=== PATIENT | female | born 1990 | race Caucasian/White ===

== ENCOUNTER 2016-09-24 17:00 | Emergency (ER) | payer SELFPAY ==
[2016-09-24 17:17] VITALS: BP 142/92
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
[2016-09-24] MEDS ORDERED: Cyclobenzaprine TAB* 10 MG PO ONE (17:56)
--- NOTE | 2016-09-24 18:28 | RAD ---
Indication: Left shoulder pain. 3 views of left shoulder demonstrates no fracture. No other bone or joint abnormality is identified. IMPRESSION: No fracture of the left shoulder is noted.
== END 2016-09-24 18:52 | disposition home or self-care (01) ==
LOC: UCEAST 17:00
DX: M25.512 Pain in left shoulder (principal); R20.0 Anesthesia of skin; F17.210 Nicotine dependence, cigarettes, uncomplicated
CPT/HCPCS: 99212; A9270-GY; G0463

== ENCOUNTER 2019-05-12 11:15 | Emergency (ER) | payer SELFPAY ==
--- NOTE | 2019-05-12 11:36 | UC ---
Respiratory Complaint HPI - HPI Summary HPI Summary: 29 yo female presents with URI symptoms. She tells me that for the past 3 days she has had body aches, fatigue, cough, and last night began to have a sore throat. She has not been taking anything OTC for her symptoms. States co- workers have been sick with similar symptoms. She is still smoking. Denies fever , chills, SOB, abdominal pain,n/v - History of Current Complaint Stated Complaint: SORE THROAT CHEST CONGESTION Time Seen by Provider: 05/12/19 11:36 Hx Obtained From: Patient Hx Last Menstrual Period: 09/12/16 Onset/Duration: Sudden Onset Severity Initially: Moderate Severity Currently: Moderate Pain Intensity: 7 Pain Scale Used: 0-10 Numeric - Allergies/Home Medications Allergies/Adverse Reactions: Allergies Allergy/AdvReac Type Severity Reaction Status Date / Time No Known Allergies Allergy Verified 05/12/19 11:37 PMH/Surg Hx/FS Hx/Imm Hx - Additional Past Medical History Additional PMH: None - Surgical History Surgical History: Yes Surgery Procedure, Year, and Place: 02/2016 - Family History Known Family History: Positive: Cardiac Disease, Hypertension, Diabetes - Social History Occupation: Employed Full-time Lives: With Family Alcohol Use: Rare Alcohol Amount: last night Substance Use Type: None Substance Use Comment - Amount & Last Used: once a week Smoking Status (MU): Light Every Day Tobacco Smoker Type: Cigarettes Amount Used/How Often: 6 cigarettes daily Length of Time of Smoking/Using Tobacco: 13 YRS Have You Smoked in the Last Year: Yes Household Exposure Type: Cigarettes - Immunization History Most Recent Influenza Vaccination: none Review of Systems All Other Systems Reviewed And Are Negative: No Constitutional: Positive: Fatigue, Other - Body aches Skin: Positive: Negative Eyes: Positive: Negative ENT: Positive: Sore Throat Respiratory: Positive: Cough Cardiovascular: Positive: Negative Gastrointestinal: Positive: Negative Neurological: Positive: Negative Psychological: Positive: Negative Physical Exam - Summary Physical Exam Summary: GENERAL: NAD. WDWN. No pain distress. SKIN: No rashes, sores, lesions, or open wounds. HEENT: Head: AT/NC Eyes: EOM intact. Conjunctiva clear without inflammation or discharge. Ears: Hearing grossly normal. TMs intact, no bulging, erythema, or edema. Nose: Nasal mucosa pink and moist. NTTP maxillary and frontal sinus. Throat: Posterior oropharynx without exudates, erythema, or tonsillar enlargement. Uvula midline. NECK: Supple. Nontender. No lymphadenopathy. CHEST: CTAB. No accessory muscle use. Breathing comfortably and in no distress. CV: RRR. Pulses intact. Cap refill <2seconds NEURO: Alert. PSYCH: Age appropriate behavior. Triage Information Reviewed: Yes Vital Signs: Vital Signs: Temp Pulse Resp BP Pulse Ox 96.4 F 81 18 143/71 97 05/12/19 11:37 05/12/19 11:37 05/12/19 11:37 05/12/19 11:37 05/12/19 11:37 Vital Signs Reviewed: Yes Respiratory Course/Dx - Course Course Of Treatment: Discussed viral vs bacterial causes of URI with pt and she prefers to be on anbx at this time. - Differential Dx/Diagnosis Provider Diagnosis: URI (upper respiratory infection) Discharge ED - Sign-Out/Discharge Documenting (check all that apply): Patient Departure All imaging exams completed and their final reports reviewed: No Studies - Discharge Plan Condition: Stable Disposition: HOME Prescriptions: Amoxicillin PO (*) [Amoxicillin 875 MG (*)] 875 mg PO BID #14 tab Patient Education Materials: Upper Respiratory Infection (ED) Referrals: No Primary Care Phys,NOPCP [Primary Care Provider] - Additional Instructions: If you develop a fever, shortness of breath, chest pain, new or worsening symptoms - please call your PCP or go to the ED immediately. Your blood pressure was high at todays visit. Please see your primary provider within 4 weeks for recheck and re-evaluation. - Billing Disposition and Condition Condition: STABLE Disposition: Home
[2019-05-12 11:44] VITALS: BP 143/71
== END 2019-05-12 12:25 | disposition home or self-care (01) ==
LOC: UCEAST 11:15
DX: J06.9 Acute upper respiratory infection, unspecified (principal); F17.210 Nicotine dependence, cigarettes, uncomplicated; R53.83 Other fatigue
CPT/HCPCS: 99212; G0463

== ENCOUNTER 2019-09-28 17:17 | Emergency (ER) | payer SELFPAY ==
[2019-09-28] MEDS ORDERED: NS 0.9% 1000 ML** 1,000 ML IV ONE (17:52)
[2019-09-28] MEDS ORDERED: Ketorolac INJ* 30 MG/ML 1 ML VIAL IV PUSH ONE (17:52)
[2019-09-28 17:53] LABS: ABS Eosinophils 0.1 10^3/ul (0-0.6); ABS Lymphocytes 3.6 10^3/ul (1.0-4.8); ABS Monocytes 0.8 10^3/ul (0-0.8); ABS Neutrophils 6.1 10^3/ul (1.5-7.7); Eosinophil % 0.9 %; Hematocrit 47 % (35-47); Hemoglobin 16.5 g/dL (12.0-16.0); Lymphocyte % 33.5 %; Mean Corpuscular HGB Conc 35 g/dL (31-36); Mean Corpuscular Hemoglobin 30 pg (27-31); Mean Corpuscular Volume 85 fL (80-97); Mean Platelet Volume 8.2 fL (7.4-10.4); Nucleated Red Blood Cells % 0.1; Platelet Count 292 10^3/uL (150-450); Red Blood Count 5.52 10^6 /uL (3.70-4.87); Red Cell Distribution Width 13 % (10-15); White Blood Count 10.6 10^3/uL (3.5-10.8)
--- NOTE | 2019-09-28 18:01 | ED ---
GI/ HPI - HPI Summary HPI Summary: 29 year old female presents with abd pain since this morning. She admits to nausea vomiting. She also has diarrhea. She states she has issues with her gallbladder and it feels the same. She has not seen a surgeon. no previous abd surgeries. She has a chronic cough is unchanged. Denies any chest pain or shortness breath. No fevers. Has not had appetite. She was nauseous and was given morphine and Zofran by EMS and now feels a little bit better. She denies any urinary symptoms. - History of Current Complaint Chief Complaint: EDAbdPain Time Seen by Provider: 09/28/19 17:34 Stated Complaint: ABD PAIN PER EMS Hx Last Menstrual Period: 09/12/16 Pain Intensity: 7 - Allergy/Home Medications Allergies/Adverse Reactions: Allergies Allergy/AdvReac Type Severity Reaction Status Date / Time No Known Allergies Allergy Verified 09/28/19 17:24 Home Medications: Home Medications Omeprazole 20 mg PO DAILY #13 capsule. 09/28/19 [Rx] Ondansetron ODT TAB* [Zofran 4 MG Odt TAB*] 4 mg PO Q6H PRN #16 tab.odt [Rx] PMH/Surg Hx/FS Hx/Imm Hx Endocrine/Hematology History: Denies: Hx Diabetes, Hx Thyroid Disease Cardiovascular History: Denies: Hx Hypertension, Hx Pacemaker/ICD Respiratory History: Denies: Hx Asthma, Hx Chronic Obstructive Pulmonary Disease (COPD) GI History: Denies: Hx Ulcer Sensory History: Denies: Hx Hearing Aid Psychiatric History: Denies: Hx Panic Disorder - Surgical History Surgery Procedure, Year, and Place: 02/2016 Infectious Disease History: No Infectious Disease History: Denies: Hx Clostridium Difficile, Hx Hepatitis, Hx Human Immunodeficiency Virus (HIV), Hx of Known/Suspected MRSA, Hx Shingles, Hx Tuberculosis, Hx Known/ Suspected VRE, Hx Known/Suspected VRSA, History Other Infectious Disease, Traveled Outside the [place] in Last 30 Days - Family History Known Family History: Positive: Cardiac Disease, Hypertension, Diabetes - Social History Alcohol Use: Rare Alcohol Amount: last night Substance Use Type: Reports: Marijuana Substance Use Comment - Amount & Last Used: once a week Smoking Status (MU): Light Every Day Tobacco Smoker Type: Cigarettes Amount Used/How Often: 6 cigarettes daily Length of Time of Smoking/Using Tobacco: 13 YRS Have You Smoked in the Last Year: Yes Review of Systems Negative: Fever Negative: Chest Pain Negative: Shortness Of Breath Positive: Abdominal Pain, Vomiting, Diarrhea, Nausea All Other Systems Reviewed And Are Negative: Yes Physical Exam Triage Information Reviewed: Yes Vital Signs On Initial Exam: Initial Vitals Temp Pulse Resp BP Pulse Ox 98.3 F 84 18 154/84 97 09/28/19 17:21 09/28/19 17:21 09/28/19 17:21 09/28/19 17:21 09/28/19 17:21 Vital Signs Reviewed: Yes Appearance: Positive: Well-Appearing Skin: Positive: Warm, Dry Head/Face: Positive: Normal Head/Face Inspection Eyes: Positive: Normal, Conjunctiva Clear ENT: Positive: Pharynx normal Respiratory/Lung Sounds: Positive: Clear to Auscultation, Breath Sounds Present Cardiovascular: Positive: Normal, RRR Abdomen Description: Positive: Soft, Other: - tenderness in RUQ Bowel Sounds: Positive: Present Musculoskeletal: Positive: Normal Neurological: Positive: Normal Psychiatric: Positive: Normal Procedures - Sedation Patient Received Moderate/Deep Sedation with Procedure: No Diagnostics - Vital Signs Vital Signs Temp Pulse Resp BP Pulse Ox 09/28/19 17:21 98.3 F 84 18 154/84 97 - Laboratory Result Diagrams: 09/28/19 17:45 09/28/19 17:45 Lab Statement: Any lab studies that have been ordered have been reviewed, and results considered in the medical decision making process. - Ultrasound No standard instances Ultrasound Interpretation Completed By: Radiologist Summary of Ultrasound Findings: IMPRESSION: No acute sonographic pathology. Re-Evaluation - Re-Evaluation First Eval Change: Improved Comment: feeling better GIGU Course/Dx - Course Course Of Treatment: 29 year old female presents with abd pain since this morning. She admits to nausea vomiting. She also has diarrhea. She states she has issues with her gallbladder and it feels the same. She has not seen a surgeon. no previous abd surgeries. She has a chronic cough is unchanged. Denies any chest pain or shortness breath. No fevers. Has not had appetite. She was nauseous and was given morphine and Zofran by EMS and now feels a little bit better. She denies any urinary symptoms. On exam has tenderness in the right upper quadrant. No rebound tenderness. wbc normal. lfts normal. crp normal. gallbladder u/s shows no acute findings. will treat as potential gastritis with protonix and gi cocktail. will place on course of omeprazole. patient understand and agrees with plan. - Diagnoses Differential Diagnoses - Female: Gall Bladder Disease, Gastritis, Gastroenteritis (Viral) Provider Diagnoses: Abdominal pain, Nausea vomiting and diarrhea Discharge ED - Sign-Out/Discharge Documenting (check all that apply): Patient Departure - Discharge Plan Condition: Good Disposition: HOME Prescriptions: Omeprazole 20 mg PO DAILY #13 capsule. Ondansetron ODT TAB* [Zofran 4 MG Odt TAB*] 4 mg PO Q6H PRN #16 tab.odt PRN Reason: Nausea Patient Education Materials: Abdominal Pain (ED) Referrals: [facility] [Outside] Noemi Moreland MD [Medical Doctor] - Additional Instructions: Take omeprazole once a day take zofran every 6 hours for nausea Take tyenlol for pain every 6 hours Establish care with primary Return to ED if develop any new or worsening symptoms - Billing Disposition and Condition Condition: GOOD Disposition: Home - Attestation Statements Provider Attestation: I was available for consultation for this patient. I did not evaluate the patient or participate in any medical decision making or disposition decisions unless I am specifically named in the chart as having consulted on the patient. If I have consulted on the patient, please see my own ED note on the patient encounter. Orquidea Mensah MD
[2019-09-28 18:11] LABS: ALT 26 U/L (7-52); AST 19 U/L (13-39); Albumin 4.3 g/dL (3.2-5.2); Albumin/Globulin Ratio 1.4 (1-3); Alkaline Phosphatase 42 U/L (34-104); Anion Gap 9 mmol/L (2-11); BUN/Creatinine Ratio 13.2 (8-20); Blood Urea Nitrogen 9 mg/dL (6-24); C Reactive Protein 7.34 mg/L (<8.01); CO2 Carbon Dioxide 24 mmol/L (22-32); Calcium 9.5 mg/dL (8.6-10.3); Chloride 105 mmol/L (101-111); EGFR African American 122.9 (>60); EGFR Non-African American 101.6 (>60); Glucose 102 mg/dL (70-100); Potassium 3.8 mmol/L (3.5-5.0); Sodium 138 mmol/L (135-145); Total Protein 7.3 g/dL (6.4-8.9)
[2019-09-28 18:17] LABS: HCG Pregnancy < 0.60 mIU/mL
[2019-09-28] MEDS ORDERED: Pantoprazole IV* 40 MG IV ONE (19:15)
[2019-09-28] MEDS ORDERED: Lidocaine 2% VISCOUS* 15 ML UDC PO ONE (19:28)
[2019-09-28] MEDS ORDERED: Al Hydrox/Mg Hydrox/Simet LIQ* 30 ML UDC PO ONE (19:28)
[2019-09-28] MEDS ORDERED: O ndansetron ODT 4MG 5TAB PRPK 4 MG PAK PO ONE (19:49)
[2019-09-28 20:20] VITALS: BP 139/71
[2019-09-28 20:39] LABS: Urine Appearance Cloudy; Urine Bilirubin Negative (Negative); Urine Blood 1+ (Negative); Urine Color Amber; Urine Glucose Negative (Negative); Urine Ketones Negative (Negative); Urine Nitrite Negative (Negative); Urine Protein Negative (Negative); Urine Specific Gravity 1.028 (1.010-1.030); Urine Urobilinogen Negative (Negative)
[2019-09-28 20:49] LABS: Urine Bacteria Absent (Absent); Urine Red Blood Cell 2+(6-10/hpf) (Absent); Urine Squamous Epithelial Cell Present (Absent); Urine White Blood Cell 2+(11-20/hpf) (Absent)
== END 2019-09-28 20:16 | disposition home or self-care (01) ==
LOC: ED 17:17
DX: R10.9 Unspecified abdominal pain (principal); R11.2 Nausea with vomiting, unspecified; R19.7 Diarrhea, unspecified; F17.210 Nicotine dependence, cigarettes, uncomplicated
CPT/HCPCS: 36415; 76705; 80053; 81003; 81015; 83690; 84702; 85025; 86140; 87086; 96365; 96375; 99283; A9270-GY; J1885

== ENCOUNTER 2021-04-08 09:39 | Inpatient (IN) ==
[2021-04-08] MEDS ORDERED: Lactated Ringers 1000 ml BAG 1,000 ML IV ONE (10:27)
[2021-04-08] MEDS ORDERED: Buffered Lidocaine 1% SYRIN 1 ml INTRADERM ONE (10:27)
[2021-04-08 10:58] LABS: Urine Appearance Cloudy; Urine Bilirubin Negative (Negative); Urine Blood Negative (Negative); Urine Color Yellow; Urine Glucose Negative (Negative); Urine Ketones Negative (Negative); Urine Nitrite Negative (Negative); Urine Protein Negative (Negative); Urine Specific Gravity 1.015 (1.002-1.030); Urine Urobilinogen Negative (Negative)
[2021-04-08] MEDS ORDERED: Lactated Ringers 1000 ml BAG 1,000 ML IV SCH (11:00)
[2021-04-08 11:02] LABS: Urine Bacteria 1+ (Absent); Urine Red Blood Cell Trace(0-2/hpf) (Absent); Urine Squamous Epithelial Cell Present (Absent); Urine White Blood Cell Trace(0-5/hpf) (Absent)
[2021-04-08] MEDS ORDERED: Dinoprostone 10 MG VAG.SUPP VAGINAL ONE (11:03)
[2021-04-08 11:16] LABS: Rapid COVID-19 Molecular Undetected (Undetected)
[2021-04-08 11:28] LABS: Urine Benzodiazepine Screen None Detected (None Detect); Urine Cannabinoids Screen Presumptive Positive (None Detect); Urine Opiates Screen None Detected (None Detect)
[2021-04-08] MEDS ORDERED: Witch Hazel PAD JAR ONE (17:56)
[2021-04-09] MEDS ORDERED: Oxytocin in LR 20 UNITS/1,000 ML BAG IVPB SCH (10:00)
[2021-04-09 10:02] LABS: ABS Eosinophils 0.1 10^3/ul (0-0.6); ABS Lymphocytes 2.3 10^3/ul (1.0-4.8); ABS Monocytes 0.6 10^3/ul (0-0.8); ABS Neutrophils 6.8 10^3/ul (1.5-7.7); Eosinophil % 0.7 %; Hematocrit 40 % (35-47); Hemoglobin 13.6 g/dL (12.0-16.0); Lymphocyte % 23.7 %; Mean Corpuscular HGB Conc 34 g/dL (31-36); Mean Corpuscular Hemoglobin 28 pg (27-31); Mean Corpuscular Volume 82 fL (80-97); Mean Platelet Volume 8.7 fL (7.4-10.4); Platelet Count 257 10^3/uL (150-450); Red Blood Count 4.89 10^6 /uL (3.70-4.87); Red Cell Distribution Width 15 % (10-15); White Blood Count 9.8 10^3/uL (3.5-10.8)
[2021-04-09 10:19] LABS: Albumin 3.2 g/dL (3.2-5.2); Albumin/Globulin Ratio 1.1 (1-3); Globulin 2.9 g/dL (2-4); Potassium 4.1 mmol/L (3.5-5.0); Total Bilirubin 0.6 mg/dL (0.2-1.0); Total Protein 6.1 g/dL (6.4-8.9); Uric Acid 6.7 mg/dL (2.3-6.6)
[2021-04-10] MEDS ORDERED: OBEPIDURAL 250 ML EPIDURAL ONE (00:18)
[2021-04-10] MEDS ORDERED: Phenylephrine 40 mcg/mL 10mL (400mcg) SYRINGE IV PUSH PRN ×2 (01:20)
[2021-04-10] MEDS ORDERED: Sodium Citrate/Citric Acid LIQ 15 ML UDC PO PRN (01:20)
[2021-04-10] MEDS ORDERED: EPHEDrine (Pressors) 50 MG/ML VIAL IV PUSH PRN ×2 (01:20)
[2021-04-10] MEDS ORDERED: Lactated Ringers 1000 ml BAG 1,000 ML IV ONE (01:20)
[2021-04-10] MEDS ORDERED: Lidocaine 2% w/ EPI 1:200,000 MPF 20 ML SDV VIAL ONE (01:30)
[2021-04-10] MEDS ORDERED: fentaNYL 100 mcg/2 ml 50 MCG/ML VIAL ONE (01:30)
[2021-04-10] MEDS ORDERED: Lactated Ringers 1000 ml BAG 1,000 ML IV SCH ×2 (02:00→04:00)
[2021-04-10] MEDS ORDERED: OBEPIDURAL 250 ML EPIDURAL SCH (02:00)
[2021-04-10 02:08] LABS: Urine Appearance Cloudy; Urine Bilirubin Negative (Negative); Urine Blood Negative (Negative); Urine Color Yellow; Urine Glucose Negative (Negative); Urine Ketones Negative (Negative); Urine Nitrite Negative (Negative); Urine Protein 1+(30 mg/dL) (Negative); Urine Specific Gravity 1.025 (1.002-1.030); Urine Urobilinogen Negative (Negative)
[2021-04-10 02:12] LABS: Urine Bacteria Absent (Absent); Urine Red Blood Cell Trace(0-2/hpf) (Absent); Urine Squamous Epithelial Cell Present (Absent); Urine White Blood Cell Trace(0-5/hpf) (Absent)
[2021-04-10] MEDS ORDERED: Oxytocin in LR 20 UNITS/1,000 ML BAG IVPB SCH (03:00)
[2021-04-10] MEDS ORDERED: Witch Hazel PAD JAR TOPICAL PRN (03:10)
[2021-04-10] MEDS ORDERED: Dibucaine 1% OINT 28.35 GM TUBE PR PRN (03:10)
[2021-04-11 06:47] LABS: ABS Eosinophils 0.1 10^3/ul (0-0.6); ABS Monocytes 0.5 10^3/ul (0-0.8); ABS Neutrophils 5.6 10^3/ul (1.5-7.7); Eosinophil % 1.4 %; Hematocrit 36 % (35-47); Hemoglobin 12.2 g/dL (12.0-16.0); Lymphocyte % 32.5 %; Mean Corpuscular HGB Conc 34 g/dL (31-36); Mean Corpuscular Hemoglobin 28 pg (27-31); Mean Corpuscular Volume 82 fL (80-97); Platelet Count 232 10^3/uL (150-450); Red Blood Count 4.37 10^6 /uL (3.70-4.87); Red Cell Distribution Width 14 % (10-15); White Blood Count 9.3 10^3/uL (3.5-10.8)
[2021-04-11 15:22] VITALS: BP 138/80
== END 2021-04-11 16:40 | disposition home or self-care (01) | DRG 560 ==
LOC: MCHOBOUT 09:39 → MCHOB 10:25
PROVIDERS: ADMIT Obstetrics & Gynecology; ATTEND Obstetrics & Gynecology

== ENCOUNTER 2024-04-18 09:38 | Inpatient (IN) ==
[2024-04-18] MEDS ORDERED: Lidocaine 1% VIAL 10 MG/ML 30 ML VIAL INJ PRN (10:35)
[2024-04-18 11:00] LABS: ABS Eosinophils 0.3 10^3/uL (0.0-0.5); ABS Lymphocytes 2.2 10^3/uL (1.0-4.8); ABS Monocytes 0.6 10^3/uL (0.0-0.9); ABS Neutrophils 5.7 10^3/uL (1.5-7.6); ABS Nucleated RBC 0.01 10^3/ul; Eosinophil % 3.4 %; Hematocrit 35.2 % (35-45); Hemoglobin 11.6 g/dL (11.5-14.3); Lymphocyte % 25.3 %; Mean Corpuscular Hemoglobin 25.5 pg (27-33); Mean Corpuscular Volume 77.5 fL (80-97); Mean Platelet Volume 8.3 fL (7.5-11.2); Nucleated Red Blood Cells % 0.1 %/100WBC (0.0-0.8); Platelet Count 213 10^3/uL (150-450); Red Blood Count 4.53 10^6/uL (3.63-4.92); Red Cell Distribution Width 15.4 % (12-17); White Blood Count 8.8 10^3/uL (3.8-11.8)
[2024-04-18 11:01] LABS: Urine Appearance Turbid; Urine Bilirubin Negative (Negative); Urine Blood Negative (Negative); Urine Color Yellow; Urine Glucose Negative (Negative); Urine Ketones Negative (Negative); Urine Nitrite Negative (Negative); Urine Protein Trace (Negative); Urine Specific Gravity 1.019 (1.002-1.030); Urine Urobilinogen Negative (Negative); Urine pH 5.5 (5.0-8.0)
[2024-04-18] MEDS: miSOPROStol 100 mcg TAB PO ONE ×3 (11:54→20:10)
[2024-04-18 12:27] LABS: Urine Creatinine Concentration 80.37 mg/dL (20.00-320.00); Urine TP Creat Ratio 0.31 mg/mg
[2024-04-18 12:36] LABS: Urine Benzodiazepine Screen None Detected (None Detect); Urine Cannabinoids Screen None Detected (None Detect); Urine Opiates Screen None Detected (None Detect)
[2024-04-18 16:14] LABS: Albumin 3.1 g/dL (3.2-5.2); Albumin/Globulin Ratio 1.1 (1-3); Calcium 8.9 mg/dL (8.6-10.3); Creatinine, Serum 0.63 mg/dL (0.51-0.95); Globulin 2.8 g/dL (2-4); Potassium 3.9 mmol/L (3.5-5.0); Total Bilirubin 0.4 mg/dL (0.2-1.0); Total Protein 5.9 g/dL (6.4-8.9); eGFR CKD-EPI 118.6 (>60)
[2024-04-18 17:03] LABS: Urine Bacteria 1+ /HPF (Absent); Urine Red Blood Cell 2+(6-10/hpf) /HPF (0-Trace); Urine Squamous Epithelial Cell Present /HPF (Absent); Urine White Blood Cell 1+(6-10/hpf) /HPF (0-Trace)
[2024-04-19] MEDS: Buffered Lidocaine 1% SYRIN 1 ml INTRADERM ONE (00:04)
[2024-04-19] MEDS: Dinoprostone 10 MG VAG.SUPP VAGINAL ONE (00:20)
[2024-04-19] MEDS: Prochlorperazine 5 mg/ml 2 ml VIAL (10 mg) IV PRN (02:52)
[2024-04-19] MEDS: Nalbuphine 10 MG/ML 1 ML VIAL IV PRN (02:52)
[2024-04-19] MEDS: Lactated Ringers 1000 ml BAG 1,000 ML IV ONE (06:45)
[2024-04-19] MEDS: Penicillin G Potassium IV 5,000,000 UNITS in NS 0.9% 100 ml BAG 100 ML IVPB ONE (07:34)
[2024-04-19] MEDS: Lactated Ringers 1000 ml BAG 1,000 ML IV SCH (10:46)
[2024-04-19] MEDS: Penicillin G Potassium IV 3,000,000 UNITS in NS 0.9% 100 ml BAG 100 ML IVPB SCH (11:48)
[2024-04-19] MEDS ORDERED: Labetalol IV 5 MG/ML 20 ml VIAL ONE (12:29)
[2024-04-19] MEDS: Labetalol IV 5 MG/ML 20 ml VIAL IV PUSH ONE ×3 (12:30→20:18)
[2024-04-19] MEDS: Oxytocin in LR 20,000 MILLI.UNIT/1,000 ML BAG IV ONE (15:09)
[2024-04-19] MEDS ORDERED: Glycerin ADULT 2.4 gm SUPP PR PRN (15:26)
[2024-04-19] MEDS ORDERED: Lactated Ringers 1000 ml BAG 1,000 ML IV SCH (16:00)
[2024-04-19] MEDS: Dibucaine 1% OINT 28.35 GM TUBE PR PRN (16:42)
[2024-04-19] MEDS: Witch Hazel PAD JAR TOPICAL PRN (16:49)
[2024-04-19] MEDS ORDERED: Labetalol IV 5 MG/ML 20 ml VIAL IV ONE (20:00)
[2024-04-20 07:44] LABS: ABS Eosinophils 0.1 10^3/uL (0.0-0.5); ABS Lymphocytes 2.5 10^3/uL (1.0-4.8); ABS Monocytes 0.7 10^3/uL (0.0-0.9); ABS Neutrophils 8.5 10^3/uL (1.5-7.6); Hematocrit 34.3 % (35-45); Hemoglobin 11.3 g/dL (11.5-14.3); Mean Corpuscular Hemoglobin 25.7 pg (27-33); Mean Corpuscular Hgb Conc 32.8 g/dL (31-36); Mean Corpuscular Volume 78.3 fL (80-97); Mean Platelet Volume 8.2 fL (7.5-11.2); Platelet Count 188 10^3/uL (150-450); Red Blood Count 4.39 10^6/uL (3.63-4.92); Red Cell Distribution Width 15.6 % (12-17); White Blood Count 11.7 10^3/uL (3.8-11.8)
[2024-04-20] MEDS: Oxytocin in LR 20,000 MILLI.UNIT/1,000 ML BAG IV SCH (13:30)
[2024-04-21 07:49] VITALS: BP 156/83
== END 2024-04-21 12:00 | disposition home or self-care (01) | DRG 560 ==
LOC: MCHOBOUT 09:38 → MCHOB 10:24
PROVIDERS: ADMIT Obstetrics & Gynecology; ATTEND Obstetrics & Gynecology